=== PATIENT | female | born 1940 | race Two or more races ===

== ENCOUNTER 2024-01-31 11:27 | Inpatient (IN) | payer OTHER ==
[~2024-01-31] VITALS: Ht 157.5 cm; Wt 57.2 kg
[2024-01-31 12:52] LABS: Basophils # (auto) 0 10 ^3/uL (0-0.2); Basophils % (auto) 0.3 % (0.0-2.0); Eosinophils # (auto) 0 10 ^3/uL (0-0.8); Eosinophils % (auto) 0.1 % (0.0-7.0); Hematocrit 35.3 % (36.0-46.0); Lymphocytes # (auto) 0.7 10 ^3/uL (0.4-5.4); Mean Corpuscular Hemoglobin 31.3 pg (28.0-32.0); Mean Corpuscular Hgb Conc. 34.1 g/dL (32.0-36.0); Mean Corpuscular Volume 91.9 fL (80.0-100.0); Monocytes % (auto) 9.6 % (0.0-12.0); Neutrophils # (auto) 8.6 10 ^3/uL (1.6-8.6); Nucleated Red Blood Cells % 0.1 %; Platelet Count (auto) 219 10^3/uL (140-450); Red Blood Cells 3.84 10^6/uL (4.0-5.20); Red Cell Distribution Width 14.1 % (11.8-14.3); White Blood Cell 10.3 10^3/uL (4.4-10.8)
[2024-01-31 12:54] LABS: Alanine Aminotransferase 17 U/L (7-40); Albumin 4.1 g/dL (3.2-4.8); Alkaline Phosphatase 58 U/L (46-116); Anion Gap 9 (5-15); Aspartate Aminotransferase 24 U/L (13-40); BUN/Creatinine Ratio 39.8 (10.0-20.0); Blood Urea Nitrogen 37 mg/dL (9-23); Calcium 9.4 mg/dL (8.7-10.4); Carbon Dioxide 26 mmol/L (20-31); Chloride 108 mmol/L (98-107); Glucose 101 mg/dL (74-106); Potassium 3.8 mmol/L (3.5-5.1); Sodium 143 mmol/L (136-145)
[2024-01-31 12:55] LABS: Bilirubin, Total 0.7 mg/dL (0.2-1.0); Total Protein 6.7 g/dL (5.7-8.2)
[2024-01-31 13:05] LABS: INR 1.12 (0.9-1.15); Prothrombin Time 11.8 sec (9.3-11.8)
[2024-01-31] MEDS: PANTOPRAZOLE 40 MG/10 ML VIAL INJ IV ONE (13:36)
[2024-01-31] MEDS: PIPERACILLIN-TAZO 4.5GM 100 ML IV ONE (13:36)
[2024-01-31] MEDS: MORPHINE SULFATE 4 MG/ML SYR/VIAL IV ONE (13:47)
[2024-01-31 14:39] VITALS: PULSE 62; RESP 18; O2SAT 98
[2024-01-31 16:19] LABS: Urine Amorphous Crystal FEW /hpf (None Seen); Urine Bacteria MANY /hpf (None Seen); Urine Blood 3+ /uL (Negative); Urine Clarity Turbid (Clear); Urine Color Light-Orange (Yellow); Urine Mucus FEW (None Seen); Urine Protein, UAD TRACE (Negative); Urine Specific Gravity 1.017 (1.001-1.035); Urine Urobilinogen Normal (Negative); Urine WBC 10 /hpf (0 - 5)
[2024-01-31] MEDS: SODIUM CHLORIDE 0.9% 1,000 ML IV SCH (16:45)
[2024-01-31] MEDS ORDERED: NITROGLYCERIN 0.4 MG SL TAB SL PRN (16:45)
[2024-01-31] MEDS ORDERED: MORPHINE SULFATE INJ 2 MG/ml SYRG IV PRN ×2 (16:45)
[2024-01-31] MEDS ORDERED: ONDANSETRON HCL 4 MG/2 ML VIAL IV PRN (16:45)
[2024-01-31] MEDS: cefTRIAXone 1GM/50ML D5W 50 ML IV SCH (18:05)
[2024-01-31] MEDS: metroNIDAZOLE 500MG/100ML 100 ML IV SCH (19:15)
[2024-01-31 19:20] VITALS: PULSE 62; RESP 10; O2SAT 100
[2024-01-31] MEDS ORDERED: ROPI0.5T26 PO (21:35)
[2024-01-31] MEDS ORDERED: LISI-283 PO (21:35)
[2024-01-31 21:50] VITALS: BP 151/71; PULSE 71; RESP 18; TEMP 98.6; O2SAT 97
[2024-02-01 01:00] VITALS: BP 118/46; PULSE 76; RESP 17; TEMP 98; O2SAT 95
[2024-02-01 05:00] VITALS: BP 112/40; PULSE 47; RESP 17; TEMP 98.6; O2SAT 96
[2024-02-01 07:23] LABS: Anion Gap 6 (5-15); Carbon Dioxide 27 mmol/L (20-31); Chloride 108 mmol/L (98-107); Potassium 3.7 mmol/L (3.5-5.1); Sodium 141 mmol/L (136-145)
[2024-02-01 07:25] LABS: Calcium 8.6 mg/dL (8.7-10.4)
[2024-02-01 07:30] LABS: BUN/Creatinine Ratio 28.9 (10.0-20.0); Blood Urea Nitrogen 22 mg/dL (9-23); Glucose 76 mg/dL (74-106)
[2024-02-01 07:52] LABS: Basophils # (auto) 0.1 10 ^3/uL (0-0.2); Basophils % (auto) 0.5 % (0.0-2.0); Eosinophils # (auto) 0.1 10 ^3/uL (0-0.8); Eosinophils % (auto) 0.7 % (0.0-7.0); Hematocrit 29.9 % (36.0-46.0); Hemoglobin 10.2 g/dL (12.2-16.2); Lymphocytes # (auto) 1.4 10 ^3/uL (0.4-5.4); Lymphocytes % (auto) 12.5 % (10.0-50.0); Mean Corpuscular Hemoglobin 31.2 pg (28.0-32.0); Mean Corpuscular Volume 91.8 fL (80.0-100.0); Monocytes # (auto) 0.8 10 ^3/uL (0-1.3); Monocytes % (auto) 7.3 % (0.0-12.0); Neutrophils # (auto) 9.1 10 ^3/uL (1.6-8.6); Nucleated Red Blood Cells % 0.1 %; Red Blood Cells 3.25 10^6/uL (4.0-5.20); Red Cell Distribution Width 14.1 % (11.8-14.3); White Blood Cell 11.5 10^3/uL (4.4-10.8)
[2024-02-01 08:45] LABS: Platelet Count (auto) 172 10^3/uL (140-450)
[2024-02-01 09:00] VITALS: BP 121/41; PULSE 51; RESP 20; TEMP 98.4; O2SAT 99
[2024-02-01 13:00] VITALS: BP 150/73; PULSE 53; RESP 19; TEMP 98.2; O2SAT 99
[2024-02-01] MEDS: GOLYTELY 4L KIT PO ONE (14:50)
[2024-02-01 17:10] VITALS: BP 144/64; PULSE 64; RESP 17; TEMP 98.5; O2SAT 94
[2024-02-01 20:00] VITALS: PULSE 66; RESP 16; O2SAT 90
[2024-02-02] VITALS (7 sets, daily range): BP systolic 110–150; BP diastolic 54–72; PULSE 66–96; RESP 17–18; TEMP 98.1–98.6; O2SAT 91–99
[2024-02-02] MEDS: MAGNESIUM CITRATE SOLUTION 300 ML BTL PO ONE (06:00)
[2024-02-02] MEDS: GOLYTELY 4L KIT PO ONE (07:05)
[2024-02-02] MEDS: metroNIDAZOLE 500MG/100ML 100 ML IV SCH (13:00)
[2024-02-02] MEDS ORDERED: ONDANSETRON HCL 4 MG/2 ML VIAL IV ONE ×2 (13:45→15:45)
[2024-02-02] MEDS ORDERED: fentaNYL CITRATE 100 MCG/2 ML VL ONE (14:46)
[2024-02-02] MEDS ORDERED: MIDAZOLAM HCL 2MG/2ML 2ml VIAL (1mg/ml) ONE (14:46)
[2024-02-02] MEDS ORDERED: PROPOFOL 10 MG/ML 20 ML IV ONE (15:08)
[2024-02-02] MEDS ORDERED: ONDANSETRON HCL 4 MG/2 ML VIAL ONE (15:08)
[2024-02-03] VITALS (8 sets, daily range): BP systolic 114–139; BP diastolic 48–67; PULSE 61–100; RESP 17–19; TEMP 98–99.4; O2SAT 91–99
[2024-02-03] MEDS ORDERED: METR-344 PO (14:56)
[2024-02-03] MEDS ORDERED: CEPH250C PO (14:56)
[2024-02-03] MEDS: MORPHINE SULFATE INJ 2 MG/ml SYRG IV PRN (21:39)
[2024-02-04 01:26] VITALS: BP 144/49; PULSE 58; RESP 18; TEMP 97.9; O2SAT 96
[2024-02-04 05:35] VITALS: BP 139/46; PULSE 57; RESP 18; TEMP 97.9; O2SAT 97
[2024-02-04 08:00] VITALS: RESP 18; O2SAT 93
[2024-02-04 09:00] VITALS: BP 129/60; PULSE 65; RESP 18; TEMP 97.5; O2SAT 96
[2024-02-04 13:00] VITALS: BP 138/60; PULSE 64; RESP 18; TEMP 97.5; O2SAT 97
[2024-02-04 15:50] VITALS: BP 138/60; PULSE 64; RESP 18; TEMP 97.5; O2SAT 97
== END 2024-02-04 17:00 | disposition home health service (06) | DRG 395 ==
LOC: EDBD 11:27 → ER 11:45 → CENTRAL 16:49 → OVERFLOW 16:49 → CENTRAL 20:51
PROVIDERS: ADMIT Hospitalist; ATTEND Hospitalist
PROC: 0DBM8ZX Excision of Descending Colon, Via Natural or Artificial Opening Endoscopic, Diagnostic (ICD-10-PCS; principal; 2024-02-02 14:41)
DX: K55.9 Vascular disorder of intestine, unspecified (principal); E03.9 Hypothyroidism, unspecified; I10 Essential (primary) hypertension; K64.8 Other hemorrhoids; Z88.8 Allergy status to other drugs, medicaments and biological substances; Z79.899 Other long term (current) drug therapy; Z90.710 Acquired absence of both cervix and uterus
CPT/HCPCS: 36415; 74176; 80048; 80053; 81001; 83605; 84484; 85025; 85610; 85730; 86850; 86900; 86901; 93005; 96365; 96366; 96375; 97110; 97116; 97163; 97530; G0378; J2250; J2405; J2470; J2543; J2704; J3490